=== PATIENT | male | born 1985 | race American Indian/Alaskan Native ===

== ENCOUNTER 2017-02-05 15:44 | Emergency (ER) | payer OTHER ==
[2017-02-05 16:19] VITALS: RESP 16; TEMP 98.2; O2SAT 100
[2017-02-05] MEDS ORDERED: TDAP Vaccine 0.5 mL Syr IM ONE (18:18)
--- NOTE | 2017-02-05 19:32 | ED PDOC ---
HPI: General Adult Time Seen by Provider: 02/05/17 16:46 Chief Complaint (Nursing): Finger,Hand,&Wrist History Per: Patient Additional Complaint(s): Pt. states earlier today while at home he accidentally cut his R index finger with a metal object. Denies numbness, tingling, FB sensation. Past Medical History Reviewed: Historical Data, Nursing Documentation, Vital Signs Vital Signs: Last Vital Signs Temp 98.2 F 02/05/17 16:16 Pulse 66 02/05/17 16:16 Resp 16 02/05/17 16:16 BP 105/51 L 02/05/17 16:16 Pulse Ox 100 02/05/17 16:16 - Medical History PMH: Asthma - Family History Family History: States: No Known Family Hx - Home Medications Home Medications: Ambulatory Orders Medication Instructions Recorded No Known Home Med 02/05/17 - Allergies Allergies/Adverse Reactions: Allergies Allergy/AdvReac Type Severity Reaction Status Date / Time Penicillins Allergy RASH Verified 02/05/17 18:01 Review of Systems ROS Statement: Except As Marked, All Systems Reviewed And Found Negative Physical Exam - Physical Exam Appears: Positive for: Well, Non-toxic, No Acute Distress Skin: Positive for: Normal Color, Warm. Negative for: Rash Extremity: Positive for: Normal ROM (actively of R 2nd digit ), Other - ECG O2 Sat by Pulse Oximetry: 100 Procedures - Time-Out Type of Procedure: Finger laceration Site of Procedure: R 2nd digit Correct Patient (with visual ID + MR# on ID Band): Yes Correct Procedure: Yes Correct Site Marked: Yes PA/Tech: Leona - Laceration/Wound Repair Laceration repair Wound Length (cm): 1.5 Wound's Depth, Shape: superficial Irrigated w/ Saline (ccs): 300 Betadine Prep?: Yes Anesthesia: 1% Lidocaine Volume Anesthetic (ccs): 3 Wound Repaired With: Sutures Suture Size/Type: 5:0, proline Wound Complexity: Simple Disposition - Clinical Impression Clinical Impression: Finger laceration - Patient ED Disposition Is Patient to be Admitted: No - Disposition Disposition: Routine/Home Disposition Time: 19:31 Condition: STABLE Additional Instructions: Suture removal in 7 days. Instructions: Care For Your Stitches (ED)
[2017-02-05 19:41] VITALS: BP 110/60; PULSE 62
== END 2017-02-05 19:40 | disposition home or self-care (01) ==
LOC: H.ER 15:44
DX: S61.210A Laceration without foreign body of right index finger without damage to nail, initial encounter (principal); W22.8XXA Striking against or struck by other objects, initial encounter; Y92.008 Other place in unspecified non-institutional (private) residence as the place of occurrence of the external cause; Z88.0 Allergy status to penicillin; J45.909 Unspecified asthma, uncomplicated